=== PATIENT | male | born 1990 | race American Indian/Alaskan Native ===

== ENCOUNTER 2022-04-20 12:05 | Emergency (ER) | payer SELFPAY ==
[2022-04-20] MEDS ORDERED: oxyCODONE /ACETAMINOPHEN 5-325MG TAB PO ONE (18:31)
[2022-04-20] MEDS ORDERED: KETOROLAC 10 MG TAB PO ONE (18:31)
[2022-04-20] MEDS ORDERED: CYCLOBENZAPRINE 10 MG TAB PO ONE (18:31)
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
[2022-04-20 19:27] VITALS: BP 131/74
== END 2022-04-20 19:27 | disposition home or self-care (01) ==
LOC: ED 12:05
DX: S00.81XA Abrasion of other part of head, initial encounter (principal); M54.2 Cervicalgia; V89.2XXA Person injured in unspecified motor-vehicle accident, traffic, initial encounter; Y93.89 Activity, other specified; Y92.89 Other specified places as the place of occurrence of the external cause; Y99.8 Other external cause status
CPT/HCPCS: 99282